=== PATIENT | male | born 1985 | race Caucasian/White ===

== ENCOUNTER 2018-06-01 15:35 | Emergency (ER) | payer SELFPAY | END 2018-06-01 16:25 | disposition home or self-care (01) | LOC: NAV ERS 15:35 | DX: L03.317 Cellulitis of buttock (principal); F41.9 Anxiety disorder, unspecified; F32.9 Major depressive disorder, single episode, unspecified; F17.210 Nicotine dependence, cigarettes, uncomplicated | CPT/HCPCS: 99283 ==